=== PATIENT | female | born 1940 | race Two or more races ===

== ENCOUNTER 2023-05-03 13:00 | Emergency (ER) | payer OTHER ==
[~2023-05-03] VITALS: Ht 157.5 cm; Wt 71.7 kg
[~2023-05-03 13:00] MED LIST: AVAPRO150 MG PO; BUSPIRONE HCL7.5 MG PO; CARVEDILOL6.25 MG; CLONAZEPAM1 M1 PO; ECOTRIN81 MG PO; FOLIC ACID0.4 MG; LASIX40 MG PO; LOKELMA10 GM PO; NORVASC5 MG PO; PAXIL20 MG; PENTOXIFYLLINE400 MG PO; RENVELA0.8 GM PO; SENSIPAR60 MG PO; VITAMIN C500 M1 PO; ZOCOR40 MG PO
[2023-05-03] MEDS ORDERED: LANTUS SOL100 UNIT/1 SQ (13:38)
[2023-05-03] MEDS ORDERED: LANTUS SOL100 UNIT/1 PO (13:38)
== END 2023-05-03 15:19 | disposition home or self-care (01) ==
LOC: ER 13:00
PROVIDERS: General Practice
DX: R60.0 Localized edema (principal); Z20.822 Contact with and (suspected) exposure to COVID-19
CPT/HCPCS: 36415; 96365; 99283; J3490

== ENCOUNTER 2023-05-29 14:58 | Emergency (ER) | payer OTHER ==
[~2023-05-29] VITALS: Ht 160 cm; Wt 68.0 kg
[~2023-05-29 14:58] MED LIST changes: +LANTUS SOL100 UNIT/1 PO; +LANTUS SOL100 UNIT/1 SQ
[2023-05-29 17:07] LABS: HEMATOCRIT 35.5 % (36.0-45.00); HEMOGLOBIN 11.4 g/dL (12.0-15.00); MEAN CELL VOLUME 103.9 fL (80.00-100.00); MEAN CORPUSCULAR HEMOGLOBIN 33.4 pg (27.00-32.0); MEAN CORPUSCULAR HGB CONC 32.2 g/dl (32.0-36.0); PLATELET COUNT 284 K/uL (150-450); RED BLOOD COUNT 3.42 M/uL (4.00-6.00); RED CELL DISTRIBUTION WIDTH 17.1 % (11.5-14.5)
== END 2023-05-29 18:15 | disposition home or self-care (01) ==
LOC: ER 14:58
PROVIDERS: General Practice
DX: B34.9 Viral infection, unspecified (principal); I10 Essential (primary) hypertension; Z88.8 Allergy status to other drugs, medicaments and biological substances; Z20.822 Contact with and (suspected) exposure to COVID-19
CPT/HCPCS: 36415; 96365; 99284; J2405; J3490

== ENCOUNTER 2023-06-13 15:50 | Emergency (ER) | payer OTHER ==
[~2023-06-13] VITALS: Ht 157.5 cm; Wt 61.2 kg
== END 2023-06-13 19:45 | disposition home or self-care (01) ==
LOC: ER 15:51
DX: S00.93XA Contusion of unspecified part of head, initial encounter (principal); S80.02XA Contusion of left knee, initial encounter; S80.01XA Contusion of right knee, initial encounter; W18.39XA Other fall on same level, initial encounter; Y93.E8 Activity, other personal hygiene; Y92.012 Bathroom of single-family (private) house as the place of occurrence of the external cause; Y99.9 Unspecified external cause status; E11.9 Type 2 diabetes mellitus without complications; Z79.4 Long term (current) use of insulin; Z79.84 Long term (current) use of oral hypoglycemic drugs; Z88.8 Allergy status to other drugs, medicaments and biological substances

== ENCOUNTER 2023-06-15 19:24 | Emergency (ER) | payer OTHER ==
[~2023-06-15] VITALS: Ht 167.6 cm; Wt 49.9 kg
[2023-06-15 23:58] LABS: HEMATOCRIT 33.7 % (36.0-45.00); HEMOGLOBIN 11.3 g/dL (12.0-15.00); MEAN CELL VOLUME 103.5 fL (80.00-100.00); MEAN CORPUSCULAR HEMOGLOBIN 34.7 pg (27.00-32.0); MEAN CORPUSCULAR HGB CONC 33.5 g/dl (32.0-36.0); PLATELET COUNT 170 K/uL (150-450); RED BLOOD COUNT 3.26 M/uL (4.00-6.00); RED CELL DISTRIBUTION WIDTH 17.7 % (11.5-14.5)
[2023-06-16] MEDS ORDERED: ZYNCOF 20-400120 ML PO (01:54)
[2023-06-16] MEDS ORDERED: LEVALBUTER0.63 MG/3 IH (01:54)
== END 2023-06-16 02:05 ==
LOC: ER 19:24
DX: J06.9 Acute upper respiratory infection, unspecified (principal); Z20.822 Contact with and (suspected) exposure to COVID-19

== ENCOUNTER 2023-06-17 20:15 | Inpatient (IN) | payer OTHER ==
[~2023-06-17] VITALS: Ht 157.5 cm; Wt 65.8 kg
[~2023-06-17 20:15] MED LIST changes: +LEVALBUTER0.63 MG/3 IH; +ZYNCOF 20-400120 ML PO
--- NOTE | 2023-06-17 20:30 | NUR ---
SE RECIBE PTE ALERTA Y ORIENTADA X3 EN [place] DE FAMILIAR LA CUAL REFIERE TRAER A PTE POR FIEBRE Y TOS PRODUCTIVA DESDE EARLINE. SE MIDEN S/V A PTE, FAMILIAR REFIERE HABERLE DADO ADVIL PARA LA FIEBRE. PTE SE COLOCA EN [place] DE [place].
--- NOTE | 2023-06-17 21:32 | NUR ---
SE EDUCA PTE SOBRE TX A RECIBIR EN EL AREA LA MISMA REFIERE ENTENDER, SE REALIZA MUESTRAS JUSTIN ORDEN MEDICA Y SE ENVIAN DE MANERA INMEDIATA, SE LLAMA A PERSONAL DE TERAPIA Y SE NOTIFICAN LAS MISMAS.
[2023-06-17 21:48] LABS: MEAN CELL VOLUME 104.8 fL (80.00-100.00); MEAN CORPUSCULAR HEMOGLOBIN 33.8 pg (27.00-32.0); MEAN CORPUSCULAR HGB CONC 32.3 g/dl (32.0-36.0); PLATELET COUNT 166 K/uL (150-450); RED BLOOD COUNT 2.96 M/uL (4.00-6.00); RED CELL DISTRIBUTION WIDTH 17.4 % (11.5-14.5)
[2023-06-17 22:03] LABS: CALCIUM 9.2 mg/dL (8.5-10.1); CREATININE SERUM 3.31 mg/dL (0.55-1.02); GFR 13.4; POTASSIUM 4.1 mEq/L (3.5-5.1)
--- NOTE | 2023-06-17 22:03 | NUR ---
SE LLAMA A PERSONAL DE TERAPIA [place] Y NO CONTESTAN TELEFONO.
[2023-06-17 22:25] LABS: ABG PH 7.427 (7.35-7.45); ABG pCO2 50.2 mmHg (35-45); BASE EXCESS 6.6 mmol/l; BICARBONATE 32.3 mmol/l (23-25); SaO2 90.5 %; Tco2 33.9 mmol/l
[2023-06-17 22:39] LABS: ABG PO2 56.9 mmHg (80-100); allen test SATISFACTORY; o2 21 %; puncture site RADIAL LEFT
--- NOTE | 2023-06-17 22:59 | NUR ---
SE ADMINISTRA MEDICACION JUSTIN ORDEN MEDICA A PTE Y SE EDUCA SOBRE TX A SEGUIR, PTE NO PRESENTA REACCION ADVERSA A LOS MISMOS.
[2023-06-18 02:00] LABS: INR 1.05; PARTIAL THROMBOPLASTIN TIME 25.9 SECONDS (22.0-34.0)
[2023-06-20 09:53] LABS: ABG PH 7.376 (7.35-7.45); ABG PO2 66.4 mmHg (80-100); ABG pCO2 42.1 mmHg (35-45); BASE EXCESS -1.1 mmol/l; BICARBONATE 24.2 mmol/l (23-25); SaO2 92.2 %; Tco2 25.4 mmol/l
[2023-06-20 09:57] LABS: allen test SATISFACTORY; puncture site RADIAL LEFT
[2023-06-20 09:58] LABS: o2 21 %
[2023-06-21 06:18] LABS: HEMATOCRIT 30.3 % (36.0-45.00); MEAN CELL VOLUME 103.8 fL (80.00-100.00); MEAN CORPUSCULAR HEMOGLOBIN 34.3 pg (27.00-32.0); MEAN CORPUSCULAR HGB CONC 33.1 g/dl (32.0-36.0); PLATELET COUNT 168 K/uL (150-450); RED BLOOD COUNT 2.92 M/uL (4.00-6.00); RED CELL DISTRIBUTION WIDTH 16.8 % (11.5-14.5)
[2023-06-21 06:42] LABS: ALBUMIN 2.8 gm/dL (3.4-5.0); BILIRUBIN TOTAL 0.41 mg/dL (0.3-1.2); CALCIUM 9.8 mg/dL (8.5-10.1); GFR 8.92; GLOBULINA 3.3 G/DL (2.4-3.5); POTASSIUM 5.55 mEq/L (3.5-5.1); TOTAL PROTEIN 6.1 gm/dL (6.4-8.2)
[2023-06-21 07:55] LABS: CREATININE SERUM 4.71 mg/dL (0.55-1.02)
[2023-06-21 19:11] LABS: ABG PH 7.332 (7.35-7.45); ABG PO2 71.4 mmHg (80-100); ABG pCO2 39.7 mmHg (35-45); BASE EXCESS -4.9 mmol/l; BICARBONATE 20.6 mmol/l (23-25); SaO2 92.5 %; Tco2 21.8 mmol/l
[2023-06-21 19:21] LABS: allen test SATISFACTORY; o2 21 %; puncture site RADIAL RIGHT
== END 2023-06-23 22:15 | disposition home or self-care (01) | DRG 291 ==
LOC: ER 20:15 → SURH 23:43
PROVIDERS: General Practice; Internal Medicine; Internal Medicine Nephrology; ADMIT Specialist; ATTEND Specialist
PROC: 8E0ZXY6 Isolation (ICD-10-PCS; principal; 2023-06-17)
PROC: B54DZZZ Ultrasonography of Bilateral Lower Extremity Veins (ICD-10-PCS; 2023-06-18)
PROC: 3E0F7GC Introduction of Other Therapeutic Substance into Respiratory Tract, Via Natural or Artificial Opening (ICD-10-PCS; 2023-06-18)
PROC: BW24ZZZ Computerized Tomography (CT Scan) of Chest and Abdomen (ICD-10-PCS; 2023-06-19)
PROC: 02HV33Z Insertion of Infusion Device into Superior Vena Cava, Percutaneous Approach (ICD-10-PCS; 2023-06-20)
PROC: 5A1D70Z Performance of Urinary Filtration, Intermittent, Less than 6 Hours Per Day (ICD-10-PCS; 2023-06-20)
PROC: BW24YZZ Computerized Tomography (CT Scan) of Chest and Abdomen using Other Contrast (ICD-10-PCS; 2023-06-21)
PROC: 5A1D70Z Performance of Urinary Filtration, Intermittent, Less than 6 Hours Per Day (ICD-10-PCS; 2023-06-22)
DX: I50.9 Heart failure, unspecified (principal); N18.6 End stage renal disease; I12.0 Hypertensive chronic kidney disease with stage 5 chronic kidney disease or end stage renal disease; J45.901 Unspecified asthma with (acute) exacerbation; I95.9 Hypotension, unspecified; Z99.2 Dependence on renal dialysis; J10.1 Influenza due to other identified influenza virus with other respiratory manifestations; R09.02 Hypoxemia; B95.62 Methicillin resistant Staphylococcus aureus infection as the cause of diseases classified elsewhere; E11.8 Type 2 diabetes mellitus with unspecified complications; Z79.4 Long term (current) use of insulin; R09.89 Other specified symptoms and signs involving the circulatory and respiratory systems

== ENCOUNTER 2023-07-01 19:54 | Emergency (ER) | payer OTHER ==
[~2023-07-01] VITALS: Ht 157.5 cm; Wt 65.8 kg
== END 2023-07-01 21:45 ==
LOC: ER 19:54
DX: Z48.02 Encounter for removal of sutures (principal)

== ENCOUNTER 2023-08-05 10:53 | Inpatient (IN) | payer OTHER ==
[~2023-08-05] VITALS: Ht 157.5 cm; Wt 139.7 kg
[2023-08-05 11:29] LABS: INR 1.19; PARTIAL THROMBOPLASTIN TIME 28.2 SECONDS (22.0-34.0); PROTHROMBIN TIME 12.3 SECONDS (9.0-11.5)
[2023-08-05 11:36] LABS: HEMATOCRIT 34.5 % (36.0-45.00); HEMOGLOBIN 11.3 g/dL (12.0-15.00); MEAN CELL VOLUME 103.8 fL (80.00-100.00); MEAN CORPUSCULAR HEMOGLOBIN 34.1 pg (27.00-32.0); MEAN CORPUSCULAR HGB CONC 32.9 g/dl (32.0-36.0); RED BLOOD COUNT 3.32 M/uL (4.00-6.00); RED CELL DISTRIBUTION WIDTH 18.1 % (11.5-14.5)
[2023-08-05 11:39] LABS: PLATELET COUNT 121 K/uL (150-450)
[2023-08-05 11:41] LABS: CALCIUM 8.8 mg/dL (8.5-10.1); GFR 5.26; POTASSIUM 5.77 mEq/L (3.5-5.1)
[2023-08-05 11:57] LABS: CREATININE SERUM 7.44 mg/dL (0.55-1.02)
[2023-08-05 13:07] LABS: ABG PH 7.404 (7.35-7.45); ABG pCO2 38.3 mmHg (35-45); BICARBONATE 23.4 mmol/l (23-25); Tco2 24.6 mmol/l
[2023-08-05 13:08] LABS: allen test SATISFACTORY; o2 21 %; puncture site BRADIAL LEFT
[2023-08-05 19:38] LABS: CKMB 1.7 NG/ML (0.5-3.6)
[2023-08-05 22:14] LABS: ABG PH 7.369 (7.35-7.45); ABG PO2 72.9 mmHg (80-100); ABG pCO2 42.2 mmHg (35-45); BASE EXCESS -1.1 mmol/l; BICARBONATE 24.3 mmol/l (23-25); SaO2 93.8 %
[2023-08-05 22:15] LABS: Tco2 25.6 mmol/l
[2023-08-05 22:16] LABS: allen test SATISFACTORY; o2 50 %; puncture site RADIAL RIGHT
[2023-08-06 05:09] LABS: HEMATOCRIT 33.3 % (36.0-45.00); MEAN CELL VOLUME 104.2 fL (80.00-100.00); MEAN CORPUSCULAR HEMOGLOBIN 34.6 pg (27.00-32.0); MEAN CORPUSCULAR HGB CONC 33.2 g/dl (32.0-36.0); RED BLOOD COUNT 3.19 M/uL (4.00-6.00); RED CELL DISTRIBUTION WIDTH 17.6 % (11.5-14.5)
[2023-08-06 05:10] LABS: PLATELET COUNT 123 K/uL (150-450)
[2023-08-06 05:14] LABS: INR 1.17; PARTIAL THROMBOPLASTIN TIME 29.1 SECONDS (22.0-34.0); PROTHROMBIN TIME 12.1 SECONDS (9.0-11.5)
[2023-08-06 05:24] LABS: ERYTHROCYTE SEDIMENTATION RATE 64 mm/hr
[2023-08-06 14:12] LABS: CKMB 1.7 NG/ML (0.5-3.6)
[2023-08-06 14:17] LABS: ALBUMIN 3.4 gm/dL (3.4-5.0); BILIRUBIN TOTAL 0.72 mg/dL (0.3-1.2); BILIRUBIN,CONJUGATED 0.26 mg/dL (0.0-0.2); BILIRUBIN,UNCONJUGATED 0.46 mg/dL (0.0-0.6); CALCIUM 8.9 mg/dL (8.5-10.1); CHOL HDL RATIO 1.9 (0-5.0); GLOBULINA 3.9 G/DL (2.4-3.5); POTASSIUM 5.02 mEq/L (3.5-5.1); TOTAL PROTEIN 7.3 gm/dL (6.4-8.2)
[2023-08-06 14:22] LABS: C-REACTIVE PROTEIN 2.11 MG/DL (0.00-0.29); GFR 9.4
[2023-08-06 14:25] LABS: CREATININE SERUM 4.5 mg/dL (0.55-1.02)
[2023-08-07 15:09] LABS: URINE APPEARANCE Clear; URINE BILIRRUBIN Negative (NEGATIVE); URINE BLOOD Negative; URINE COLOR Yellow; URINE LEUKOCYTE Negative; URINE NITRATE Negative; URINE UROBILINOGEN 0.2 E.U./dl
[2023-08-07 15:12] LABS: URINE BACTERIA 12.5 uL (0.0-1933); URINE EPITHELIAL CELLS 13.7 uL (0.0-38.8); URINE WBC 3.4 uL (0.0-23.2)
[2023-08-07 15:13] LABS: URINE GLUCOSE 100 MG/DL (NEGATIVE); URINE PROTEIN 300 (NEGATIVE)
[2023-08-09 09:52] LABS: ABG PO2 123.2 mmHg (80-100); ABG pCO2 36.7 mmHg (35-45); BASE EXCESS -1.4 mmol/l; BICARBONATE 22.7 mmol/l (23-25); SaO2 98.8 %; Tco2 23.8 mmol/l; allen test SATISFACTORY; o2 36 %; puncture site RADIAL LEFT
[2023-08-10 06:13] LABS: HEMATOCRIT 35.3 % (36.0-45.00); MEAN CELL VOLUME 101.8 fL (80.00-100.00); MEAN CORPUSCULAR HEMOGLOBIN 34.6 pg (27.00-32.0); PLATELET COUNT 192 K/uL (150-450); RED BLOOD COUNT 3.47 M/uL (4.00-6.00); RED CELL DISTRIBUTION WIDTH 16.6 % (11.5-14.5)
[2023-08-10 07:02] LABS: CALCIUM 9.5 mg/dL (8.5-10.1); GFR 8.05; POTASSIUM 5.37 mEq/L (3.5-5.1)
[2023-08-10 07:50] LABS: CREATININE SERUM 5.15 mg/dL (0.55-1.02)
[2023-08-10 09:06] LABS: ABG PO2 67.9 mmHg (80-100); ABG pCO2 39.1 mmHg (35-45); BASE EXCESS -1.5 mmol/l; BICARBONATE 23.2 mmol/l (23-25); Tco2 24.4 mmol/l; o2 21 %
[2023-08-10 09:07] LABS: allen test SATISFACTORY; puncture site RADIAL LEFT
== END 2023-08-10 16:54 | disposition home or self-care (01) | DRG 640 ==
LOC: ER 10:53 → ICU-2 19:47 → MEDI 19:47
PROVIDERS: General Practice; Internal Medicine; ADMIT Internal Medicine; ATTEND Internal Medicine
PROC: 5A1D70Z Performance of Urinary Filtration, Intermittent, Less than 6 Hours Per Day (ICD-10-PCS; principal; 2023-08-05)
PROC: 3E0F7GC Introduction of Other Therapeutic Substance into Respiratory Tract, Via Natural or Artificial Opening (ICD-10-PCS; 2023-08-05)
PROC: 4A12X4Z Monitoring of Cardiac Electrical Activity, External Approach (ICD-10-PCS; 2023-08-05)
PROC: 3E0F7SF Introduction of Other Gas into Respiratory Tract, Via Natural or Artificial Opening (ICD-10-PCS; 2023-08-05)
PROC: 5A1D70Z Performance of Urinary Filtration, Intermittent, Less than 6 Hours Per Day (ICD-10-PCS; 2023-08-07)
PROC: 5A1D70Z Performance of Urinary Filtration, Intermittent, Less than 6 Hours Per Day (ICD-10-PCS; 2023-08-08)
PROC: B246ZZZ Ultrasonography of Right and Left Heart (ICD-10-PCS; 2023-08-08)
PROC: 5A1D70Z Performance of Urinary Filtration, Intermittent, Less than 6 Hours Per Day (ICD-10-PCS; 2023-08-10)
DX: E87.79 Other fluid overload (principal); N18.6 End stage renal disease; I13.2 Hypertensive heart and chronic kidney disease with heart failure and with stage 5 chronic kidney disease, or end stage renal disease; N17.9 Acute kidney failure, unspecified; I25.810 Atherosclerosis of coronary artery bypass graft(s) without angina pectoris; J90 Pleural effusion, not elsewhere classified; E87.5 Hyperkalemia; R09.02 Hypoxemia; K52.9 Noninfective gastroenteritis and colitis, unspecified; D69.6 Thrombocytopenia, unspecified; E11.22 Type 2 diabetes mellitus with diabetic chronic kidney disease; I50.9 Heart failure, unspecified; Z99.2 Dependence on renal dialysis; Z79.4 Long term (current) use of insulin

== ENCOUNTER → 2023-08-21 | Emergency (ER) | payer OTHER ==
[~2023-08-21] VITALS: Ht 154.9 cm; Wt 63.5 kg
[~2023-08-21] MED LIST changes: +BUFFERIN 325 M325 MG PO; +ZOFRAN8 MG PO
[2023-08-21 17:14] LABS: HEMATOCRIT 33.2 % (36.0-45.00); HEMOGLOBIN 10.8 g/dL (12.0-15.00); MEAN CELL VOLUME 101.5 fL (80.00-100.00); MEAN CORPUSCULAR HGB CONC 32.5 g/dl (32.0-36.0); PLATELET COUNT 209 K/uL (150-450); RED BLOOD COUNT 3.27 M/uL (4.00-6.00); RED CELL DISTRIBUTION WIDTH 16.7 % (11.5-14.5)
[2023-08-21 17:46] LABS: ALBUMIN 3.1 gm/dL (3.4-5.0); BILIRUBIN TOTAL 0.42 mg/dL (0.3-1.2); CALCIUM 8.4 mg/dL (8.5-10.1); GFR 6.48; GLOBULINA 4.1 G/DL (2.4-3.5); POTASSIUM 5.33 mEq/L (3.5-5.1); TOTAL PROTEIN 7.2 gm/dL (6.4-8.2)
[2023-08-21 18:04] LABS: CREATININE SERUM 6.21 mg/dL (0.55-1.02)
== END | disposition left against medical advice (07) ==
LOC: ER 13:49
PROVIDERS: General Practice
DX: R42 Dizziness and giddiness (principal); Z88.8 Allergy status to other drugs, medicaments and biological substances; E11.9 Type 2 diabetes mellitus without complications; Z79.4 Long term (current) use of insulin
CPT/HCPCS: 36415; 93005; 96365; J2405; J3490

== ENCOUNTER → 2023-11-01 | Emergency (ER) | payer OTHER ==
[~2023-11-01] VITALS: Ht 152.4 cm; Wt 59.4 kg
[2023-11-02 00:02] LABS: MEAN CELL VOLUME 99.1 fL (80.00-100.00); MEAN CORPUSCULAR HGB CONC 33.3 g/dl (32.0-36.0); RED BLOOD COUNT 3.53 M/uL (4.00-6.00); RED CELL DISTRIBUTION WIDTH 18.2 % (11.5-14.5)
[2023-11-02 00:06] LABS: HEMOGLOBIN 11.7 g/dL (12.0-15.00); MEAN CORPUSCULAR HEMOGLOBIN 33.1 pg (27.00-32.0); PLATELET COUNT 130 K/uL (150-450)
[2023-11-02 00:50] LABS: ALBUMIN 3.2 gm/dL (3.4-5.0); BILIRUBIN TOTAL 0.47 mg/dL (0.3-1.2); CALCIUM 8.7 mg/dL (8.5-10.1); GFR 8.35; GLOBULINA 4.3 G/DL (2.4-3.5); POTASSIUM 5.14 mEq/L (3.5-5.1); TOTAL PROTEIN 7.5 gm/dL (6.4-8.2)
[2023-11-02 01:05] LABS: CREATININE SERUM 4.99 mg/dL (0.55-1.02)
== END | disposition home or self-care (01) ==
LOC: ER 21:42
PROVIDERS: General Practice
DX: R07.89 Other chest pain (principal); E11.22 Type 2 diabetes mellitus with diabetic chronic kidney disease; I12.9 Hypertensive chronic kidney disease with stage 1 through stage 4 chronic kidney disease, or unspecified chronic kidney disease; N18.9 Chronic kidney disease, unspecified

== ENCOUNTER 2023-11-05 10:45 | Inpatient (IN) | payer OTHER ==
[~2023-11-05] VITALS: Ht 152.4 cm; Wt 158.8 kg
[2023-11-05 12:10] LABS: HEMATOCRIT 35.2 % (36.0-45.00); HEMOGLOBIN 11.6 g/dL (12.0-15.00); MEAN CELL VOLUME 98.9 fL (80.00-100.00); MEAN CORPUSCULAR HEMOGLOBIN 32.5 pg (27.00-32.0); MEAN CORPUSCULAR HGB CONC 32.8 g/dl (32.0-36.0); PLATELET COUNT 135 K/uL (150-450); RED BLOOD COUNT 3.56 M/uL (4.00-6.00); RED CELL DISTRIBUTION WIDTH 18.3 % (11.5-14.5)
[2023-11-05 12:39] LABS: ALBUMIN 3.2 gm/dL (3.4-5.0); BILIRUBIN TOTAL 0.52 mg/dL (0.3-1.2); BILIRUBIN,CONJUGATED 0.25 mg/dL (0.0-0.2); BILIRUBIN,UNCONJUGATED 0.27 mg/dL (0.0-0.6); CALCIUM 9.4 mg/dL (8.5-10.1); GFR 9.6; POTASSIUM 4.92 mEq/L (3.5-5.1)
[2023-11-05 12:44] LABS: INR 1.2; PARTIAL THROMBOPLASTIN TIME 32.1 SECONDS (22.0-34.0); PROTHROMBIN TIME 12.4 SECONDS (9.0-11.5)
[2023-11-05 12:50] LABS: CREATININE SERUM 4.42 mg/dL (0.55-1.02)
[2023-11-05] MEDS ORDERED: PENTOXIFYLLINE 400 MG TABLET.SA PO SCH (17:21)
[2023-11-05] MEDS ORDERED: DEXTROSE 50 % IN WATER 0.5 G/ML DISP.SYRIN IV PRN (17:30)
[2023-11-05] MEDS ORDERED: ONDANSETRON HCL 4 MG in 0.9 % SODIUM CHLORIDE 50 ML IV PRN (17:30)
[2023-11-05] MEDS ORDERED: ACETAMINOPHEN 500 MG GEL..CAP PO PRN (17:30)
[2023-11-05] MEDS ORDERED: INSULIN LISPRO 1,000 UNIT/10 ML UNITS SUBCUTANEO PRN (17:30)
[2023-11-05] MEDS ORDERED: PIPERACILLIN/TAZOBACTAM SODIUM 2.25 GM in DEXTROSE 5 % IN WATER 50 ML IV SCH (21:00)
[2023-11-05] MEDS ORDERED: ONDANSETRON HCL 2 MG/ML VIAL IV PRN (23:45)
[2023-11-06] MEDS ORDERED: PANTOPRAZOLE SODIUM 40 MG/VIAL VIAL IV SCH (09:00)
[2023-11-06] MEDS ORDERED: ASPIRIN 81 MG TAB.CHEW PO SCH (09:00)
[2023-11-06] MEDS ORDERED: CARVEDILOL 6.25 MG TABLET PO SCH (09:00)
[2023-11-06] MEDS ORDERED: AMLODIPINE BESYLATE 5 MG TABLET PO SCH (09:00)
[2023-11-06] MEDS ORDERED: SIMVASTATIN 10 MG TABLET PO SCH (17:00)
[2023-11-07 05:15] LABS: HEMATOCRIT 34.6 % (36.0-45.00); HEMOGLOBIN 11.6 g/dL (12.0-15.00); MEAN CELL VOLUME 98.7 fL (80.00-100.00); MEAN CORPUSCULAR HGB CONC 33.5 g/dl (32.0-36.0); RED CELL DISTRIBUTION WIDTH 18.7 % (11.5-14.5)
[2023-11-07 05:18] LABS: PLATELET COUNT 109 K/uL (150-450)
[2023-11-07 05:44] LABS: BILIRUBIN TOTAL 0.85 mg/dL (0.3-1.2); CALCIUM 8.9 mg/dL (8.5-10.1); GLOBULINA 3.9 G/DL (2.4-3.5); MAGNESIUM 2.7 mg/dL (1.8-2.4); PHOSPHOROUS 7.3 mg/dL (2.5-4.9); TOTAL PROTEIN 6.9 gm/dL (6.4-8.2)
[2023-11-07 07:29] LABS: GFR 6.26
[2023-11-07 07:30] LABS: C-REACTIVE PROTEIN 9.67 MG/DL (0.00-0.29)
[2023-11-07 07:31] LABS: CREATININE SERUM 6.4 mg/dL (0.55-1.02); POTASSIUM 6.89 mEq/L (3.5-5.1)
[2023-11-07] MEDS ORDERED: SODIUM POLYSTYRENE SULFONATE 15 G/4 TSP TSP PO SCH (12:00)
[2023-11-07] MEDS ORDERED: VANCOMYCIN HCL 1,000 MG VIAL IV ONE (16:15)
[2023-11-07] MEDS ORDERED: VANCOMYCIN HCL 500 MG VIAL IV SCH (16:15)
[2023-11-07] MEDS ORDERED: HYDROCORTISONE 2.5% 20 GM TUBE RECTAL SCH (17:00)
[2023-11-07] MEDS ORDERED: CHLORHEXIDINE GLUCONATE 240 ML BOTTLE TOP SCH (17:00)
[2023-11-07] MEDS ORDERED: MUPIROCIN 15 GM OINT..GM TUBE NASAL SCH (17:00)
[2023-11-08] MEDS ORDERED: DEXTROSE 5%-WATER 50ML IV.SOLN ONE (05:55)
[2023-11-08 07:02] LABS: HEMATOCRIT 33.4 % (36.0-45.00); MEAN CELL VOLUME 99.4 fL (80.00-100.00); MEAN CORPUSCULAR HEMOGLOBIN 32.8 pg (27.00-32.0); RED BLOOD COUNT 3.36 M/uL (4.00-6.00)
[2023-11-08 07:04] LABS: PLATELET COUNT 122 K/uL (150-450)
[2023-11-08] MEDS ORDERED: SODIUM HYPOCHLORITE 1OZ TOP SCH (10:37)
[2023-11-08] MEDS ORDERED: VANCOMYCIN HCL 500 MG VIAL IV SCH (13:00)
[2023-11-08] MEDS ORDERED: POVIDONE-IODINE 118 ML BOTT TOP ONE (16:20)
[2023-11-08] MEDS ORDERED: CARVEDILOL 3.125 MG TABLET PO SCH (17:00)
[2023-11-09 06:01] LABS: CALCIUM 8.5 mg/dL (8.5-10.1); GFR 7.25; POTASSIUM 4.55 mEq/L (3.5-5.1)
[2023-11-09 07:02] LABS: CREATININE SERUM 5.64 mg/dL (0.55-1.02)
[2023-11-09] MEDS ORDERED: VANCOMYCIN HCL 500 MG VIAL IV SCH (18:00)
[2023-11-10] MEDS ORDERED: PANTOPRAZOLE SODIUM 40 MG TABLET.DR PO SCH (09:00)
[2023-11-13] MEDS ORDERED: CLONAZEPAM 1 MG TABLET PO SCH (21:00)
[2023-11-15] MEDS ORDERED: ACETAMINOPHEN 500 MG GEL..CAP PO PRN (00:45)
[2023-11-15 07:55] LABS: HEMATOCRIT 33.9 % (36.0-45.00); HEMOGLOBIN 11.2 g/dL (12.0-15.00); MEAN CELL VOLUME 99.2 fL (80.00-100.00); MEAN CORPUSCULAR HEMOGLOBIN 32.7 pg (27.00-32.0); RED BLOOD COUNT 3.42 M/uL (4.00-6.00); RED CELL DISTRIBUTION WIDTH 19.7 % (11.5-14.5)
[2023-11-15 07:57] LABS: PLATELET COUNT 101 K/uL (150-450)
[2023-11-15 08:52] LABS: CALCIUM 8.6 mg/dL (8.5-10.1); GFR 8.46; POTASSIUM 4.86 mEq/L (3.5-5.1)
[2023-11-15 08:58] LABS: CREATININE SERUM 4.93 mg/dL (0.55-1.02)
[2023-11-17] MEDS ORDERED: GUAIFENESIN 200 MG/10 ML BLIST.PACK PO SCH (09:21)
[2023-11-17] MEDS ORDERED: IPRATROPIUM BROMIDE 0.5 MG/2.5 ML AMPUL.NEB IH SCH (09:21)
[2023-11-18 07:54] LABS: HEMATOCRIT 32.7 % (36.0-45.00); MEAN CELL VOLUME 98.8 fL (80.00-100.00); MEAN CORPUSCULAR HEMOGLOBIN 33.3 pg (27.00-32.0); MEAN CORPUSCULAR HGB CONC 33.7 g/dl (32.0-36.0); PLATELET COUNT 116 K/uL (150-450); RED BLOOD COUNT 3.31 M/uL (4.00-6.00); RED CELL DISTRIBUTION WIDTH 20.3 % (11.5-14.5)
[2023-11-18 08:00] LABS: ALBUMIN 2.7 gm/dL (3.4-5.0); BILIRUBIN TOTAL 0.71 mg/dL (0.3-1.2); CALCIUM 8.7 mg/dL (8.5-10.1); GLOBULINA 4.4 G/DL (2.4-3.5); MAGNESIUM 2.2 mg/dL (1.8-2.4); PHOSPHOROUS 5.2 mg/dL (2.5-4.9); POTASSIUM 4.87 mEq/L (3.5-5.1); TOTAL PROTEIN 7.1 gm/dL (6.4-8.2)
[2023-11-18 08:45] LABS: GFR 6.64
[2023-11-18 08:46] LABS: C-REACTIVE PROTEIN 6.44 MG/DL (0.00-0.29); CREATININE SERUM 6.08 mg/dL (0.55-1.02)
[2023-11-20 07:48] LABS: HEMATOCRIT 31.8 % (36.0-45.00); HEMOGLOBIN 10.4 g/dL (12.0-15.00); MEAN CELL VOLUME 100.5 fL (80.00-100.00); MEAN CORPUSCULAR HEMOGLOBIN 32.7 pg (27.00-32.0); MEAN CORPUSCULAR HGB CONC 32.5 g/dl (32.0-36.0); PLATELET COUNT 145 K/uL (150-450); RED BLOOD COUNT 3.17 M/uL (4.00-6.00); RED CELL DISTRIBUTION WIDTH 19.9 % (11.5-14.5)
[2023-11-20 08:22] LABS: ALBUMIN 2.7 gm/dL (3.4-5.0); BILIRUBIN TOTAL 0.69 mg/dL (0.3-1.2); CALCIUM 8.8 mg/dL (8.5-10.1); GFR 6.8; POTASSIUM 4.51 mEq/L (3.5-5.1); TOTAL PROTEIN 6.7 gm/dL (6.4-8.2)
[2023-11-20 08:46] LABS: CREATININE SERUM 5.96 mg/dL (0.55-1.02)
[2023-11-21] MEDS ORDERED: ONDANSETRON HCL 2 MG/ML VIAL IV PRN (23:45)
[2023-11-23] MEDS ORDERED: HALOPERIDOL LACTATE 5 MG/ML AMPUL IV STA (04:40)
[2023-11-23] MEDS ORDERED: BUDESONIDE 0.5 MG/2 ML AMPUL.NEB IH SCH (09:00)
[2023-11-23] MEDS ORDERED: POLYVINYL ALCOHOL 15 ML DROPS OP SCH (09:00)
[2023-11-23] MEDS ORDERED: IPRATROPIUM BROMIDE 0.5 MG/2.5 ML AMPUL.NEB IH SCH (09:00)
[2023-11-23] MEDS ORDERED: CHLORHEXIDINE GLUCONATE 15ML BRUSH KIT MM SCH (09:00)
[2023-11-23 10:13] LABS: HEMATOCRIT 38.3 % (36.0-45.00); HEMOGLOBIN 12.4 g/dL (12.0-15.00); MEAN CELL VOLUME 104.5 fL (80.00-100.00); MEAN CORPUSCULAR HEMOGLOBIN 33.8 pg (27.00-32.0); MEAN CORPUSCULAR HGB CONC 32.3 g/dl (32.0-36.0); RED BLOOD COUNT 3.67 M/uL (4.00-6.00); RED CELL DISTRIBUTION WIDTH 21.3 % (11.5-14.5)
[2023-11-23 10:26] LABS: PLATELET COUNT 126 K/uL (150-450)
[2023-11-23 10:40] LABS: INR 1.48; PARTIAL THROMBOPLASTIN TIME 34.5 SECONDS (22.0-34.0)
[2023-11-23 10:44] LABS: ALBUMIN 2.7 gm/dL (3.4-5.0); BILIRUBIN TOTAL 1.18 mg/dL (0.3-1.2); CALCIUM 8.9 mg/dL (8.5-10.1); GLOBULINA 4.3 G/DL (2.4-3.5)
[2023-11-23 10:57] LABS: GFR 6.72
[2023-11-23 10:58] LABS: CREATININE SERUM 6.02 mg/dL (0.55-1.02); POTASSIUM 6.44 mEq/L (3.5-5.1)
[2023-11-23 11:23] LABS: PROTHROMBIN TIME 15.1 SECONDS (9.0-11.5)
[2023-11-23] MEDS ORDERED: CARBOXYMETHYLCELLULOSE SODIUM 1 EACH DROPERETTE OP SCH (13:00)
[2023-11-23 13:12] LABS: ABG PH 7.288 (7.35-7.45); ABG PO2 325.6 mmHg (80-100); ABG pCO2 26.3 mmHg (35-45); BASE EXCESS -12.4 mmol/l; BICARBONATE 12.3 mmol/l (23-25); SaO2 99.9 %; Tco2 13.1 mmol/l
[2023-11-23 13:13] LABS: allen test SATISFACTORY; o2 100 %; puncture site RADIAL RIGHT
[2023-11-23] MEDS ORDERED: MEROPENEM 500 MG/VIAL VIAL IV SCH (17:00)
[2023-11-23 19:04] LABS: CKMB 8.4 NG/ML (0.5-3.6)
[2023-11-23] MEDS ORDERED: CLOPIDOGREL BISULFATE 75 MG TABLET PO SCH (21:19)
[2023-11-23] MEDS ORDERED: NITROGLYCERIN IN 5 % DEXTROSE 250 ML IV SCH (21:20)
[2023-11-23] MEDS ORDERED: HYDROCORTISONE SODIUM SUCC/PF 100 MG VIAL ONE (22:33)
[2023-11-23] MEDS ORDERED: NOREPINEPHRINE BITARTRATE 1 MG/ML AMPUL IV ONE (22:36)
[2023-11-24] MEDS ORDERED: HYDROCORTISONE SODIUM SUCC/PF 100 MG VIAL IV SCH (00:01)
[2023-11-24] MEDS ORDERED: NOREPINEPHRINE BITARTRATE 8 MG in DEXTROSE 5 % IN WATER 250 ML IV SCH (00:15)
[2023-11-24 12:09] LABS: PROCALCITONIN 9.02 ng/ml (0.020-0.080)
[2023-11-24 13:20] LABS: CORTISOL 61.27 ug/dl
== END 2023-11-23 22:30 | disposition expired | DRG 622 ==
LOC: ER 10:46 → MEDI 18:05 → MEDJ 18:05 → ICU 11-23 22:27
PROVIDERS: General Practice; Internal Medicine Infectious Disease; Internal Medicine Nephrology; ADMIT Internal Medicine; ATTEND Internal Medicine
PROC: B44HZZZ Ultrasonography of Bilateral Lower Extremity Arteries (ICD-10-PCS; 2023-11-05)
PROC: B54DZZZ Ultrasonography of Bilateral Lower Extremity Veins (ICD-10-PCS; 2023-11-05)
PROC: 5A1D70Z Performance of Urinary Filtration, Intermittent, Less than 6 Hours Per Day (ICD-10-PCS; 2023-11-07)
PROC: 0J9R0ZZ Drainage of Left Foot Subcutaneous Tissue and Fascia, Open Approach (ICD-10-PCS; 2023-11-08)
PROC: 02HV33Z Insertion of Infusion Device into Superior Vena Cava, Percutaneous Approach (ICD-10-PCS; 2023-11-08)
PROC: 0HBRXZZ Excision of Toe Nail, External Approach (ICD-10-PCS; 2023-11-08)
PROC: 5A1D70Z Performance of Urinary Filtration, Intermittent, Less than 6 Hours Per Day (ICD-10-PCS; 2023-11-09)
PROC: 5A1D70Z Performance of Urinary Filtration, Intermittent, Less than 6 Hours Per Day (ICD-10-PCS; 2023-11-11)
PROC: BL41ZZZ Ultrasonography of Lower Extremity Connective Tissue (ICD-10-PCS; 2023-11-13)
PROC: 5A1D70Z Performance of Urinary Filtration, Intermittent, Less than 6 Hours Per Day (ICD-10-PCS; 2023-11-14)
PROC: 5A1D70Z Performance of Urinary Filtration, Intermittent, Less than 6 Hours Per Day (ICD-10-PCS; 2023-11-16)
PROC: 0JBR0ZZ Excision of Left Foot Subcutaneous Tissue and Fascia, Open Approach (ICD-10-PCS; principal; 2023-11-17)
PROC: 0J9R0ZZ Drainage of Left Foot Subcutaneous Tissue and Fascia, Open Approach (ICD-10-PCS; 2023-11-17)
PROC: 3E0F7GC Introduction of Other Therapeutic Substance into Respiratory Tract, Via Natural or Artificial Opening (ICD-10-PCS; 2023-11-18)
PROC: 5A1D70Z Performance of Urinary Filtration, Intermittent, Less than 6 Hours Per Day (ICD-10-PCS; 2023-11-18)
PROC: 5A1D70Z Performance of Urinary Filtration, Intermittent, Less than 6 Hours Per Day (ICD-10-PCS; 2023-11-21)
PROC: 0JBR0ZZ Excision of Left Foot Subcutaneous Tissue and Fascia, Open Approach (ICD-10-PCS; 2023-11-22)
PROC: 4A12X4Z Monitoring of Cardiac Electrical Activity, External Approach (ICD-10-PCS; 2023-11-23)
PROC: 0BH17EZ Insertion of Endotracheal Airway into Trachea, Via Natural or Artificial Opening (ICD-10-PCS; 2023-11-23)
PROC: 5A1935Z Respiratory Ventilation, Less than 24 Consecutive Hours (ICD-10-PCS; 2023-11-23)
PROC: 5A1D70Z Performance of Urinary Filtration, Intermittent, Less than 6 Hours Per Day (ICD-10-PCS; 2023-11-23)
PROC: 5A12012 Performance of Cardiac Output, Single, Manual (ICD-10-PCS; 2023-11-23)
DX: E11.628 Type 2 diabetes mellitus with other skin complications (principal); J81.0 Acute pulmonary edema; L02.612 Cutaneous abscess of left foot; I12.0 Hypertensive chronic kidney disease with stage 5 chronic kidney disease or end stage renal disease; I01.1 Acute rheumatic endocarditis; E87.1 Hypo-osmolality and hyponatremia; L60.0 Ingrowing nail; N18.6 End stage renal disease; L03.032 Cellulitis of left toe; L97.529 Non-pressure chronic ulcer of other part of left foot with unspecified severity; B95.62 Methicillin resistant Staphylococcus aureus infection as the cause of diseases classified elsewhere; E11.51 Type 2 diabetes mellitus with diabetic peripheral angiopathy without gangrene; E11.22 Type 2 diabetes mellitus with diabetic chronic kidney disease; I46.9 Cardiac arrest, cause unspecified; E87.5 Hyperkalemia; E87.70 Fluid overload, unspecified; I25.10 Atherosclerotic heart disease of native coronary artery without angina pectoris; Z74.01 Bed confinement status; Z99.2 Dependence on renal dialysis; Z79.4 Long term (current) use of insulin; Z88.1 Allergy status to other antibiotic agents